=== PATIENT | female | born 1985 | race Caucasian/White ===

== ENCOUNTER 2021-05-24 16:35 | Emergency (ER) | payer OTHER ==
[~2021-05-24] VITALS: Ht 175.3 cm; Wt 138.6 kg
[~2021-05-24 16:35] MED LIST: ALBU8.5H; AUGM875T28 PO; BACL10TA2 PO; CYCL-707 PO; FERR325T18; FLUTISP NARES; GABA600T4; HYDR-3713 PO; LIDO5DIS41 TOP; NAPR-837 PO; NORC1TAB7 PO; OMEP-173; ONDA4TAB6 PO; PRED20TA PO; PREN29TA4 PO; SYMB16INH; TENS1TAB2 PO; TIZA10TA
[2021-05-24] MEDS ORDERED: IPRATROPIUM 0.5MG/ALBUTEROL 2.5MG INH SOL UD 3ML (DUONEB) NEB ONE (17:10)
[2021-05-24] MEDS ORDERED: methylPREDNISolone 125MG 2ML VIAL IV ONE (17:10)
[2021-05-24] MEDS ORDERED: MORPHINE 4 MG/ML 1ML VIAL/SYRINGE IV PRN (17:10)
[2021-05-24 17:52] LABS: BASO # 0.1 10^3/uL (0.0-0.2); BASO % 0.6 % (0.0-1.0); EOS # 0.2 10^3/uL (0.0-0.5); EOS % 1.8 % (0.0-3.0); HEMATOCRIT 40.5 % (36.0-47.0); HEMOGLOBIN 13.1 g/dl (12.0-15.5); LYMPH # 2.4 10^3/uL (1.5-5.0); LYMPH % 29.4 % (24.0-44.0); MEAN CORPUSCULAR HEMOGLOBIN 26.8 pg (27.0-33.0); MEAN CORPUSCULAR HGB CONC 32.3 g/dl (32.0-36.5); MEAN CORPUSCULAR VOLUME 82.8 fl (80.0-96.0); MONO # 0.7 10^3/uL (0.0-0.8); MONO % 8.7 % (2.0-8.0); NEUTROPHILS # 4.8 10^3/uL (1.5-8.5); NEUTROPHILS % 58.2 % (36.0-66.0); PLATELET COUNT, AUTOMATED 261 10^3/uL (150-450); RED BLOOD COUNT 4.89 10^6/uL (4.00-5.40); WHITE BLOOD COUNT 8.2 10^3/uL (4.0-10.0)
[2021-05-24 18:19] LABS: CK-MB VALUE MASS < 1.0 NG/ML (<3.6); CPK CREATINE PHOSPHOKINASE 46 U/L (26-192); MB/CK RELATIVE INDEX 2.17 (< OR =4)
[2021-05-24 18:21] LABS: HCG, SERUM QUALITATIVE NEGATIVE (NEGATIVE)
[2021-05-24 18:27] LABS: ALBUMIN 3.2 GM/DL (3.2-5.2); ALT/SGPT 33 U/L (12-78); BILIRUBIN,DIRECT < 0.1 MG/DL (0.0-0.2); BILIRUBIN,TOTAL 0.2 MG/DL (0.2-1.0); BLOOD UREA NITROGEN 9 MG/DL (7-18); CALCIUM LEVEL 8.6 MG/DL (8.5-10.1); CARBON DIOXIDE LEVEL 29 MEQ/L (21-32); CHLORIDE LEVEL 109 MEQ/L (98-107); CREATININE FOR GFR 0.73 MG/DL (0.55-1.30); FREE T4 0.88 NG/DL (0.76-1.46); GLOMERULAR FILTRATION RATE > 60.0 (>60); GLUCOSE, FASTING 82 MG/DL (70-100); LIPASE 144 U/L (73-393); MAGNESIUM LEVEL 1.9 MG/DL (1.8-2.4); POTASSIUM SERUM 4.4 MEQ/L (3.5-5.1); SODIUM LEVEL 140 MEQ/L (136-145)
[2021-05-24] MEDS ORDERED: ISOVUE-370 76% 100ML VIAL As Ordered ONE (18:57)
[2021-05-24] MEDS ORDERED: NORCO 5/325MG TABLET (BULK FOR ED) PO ONE (20:35)
[2021-05-24] MEDS ORDERED: PRED20TA PO ×2 (20:37→20:42)
[2021-05-24 20:45] VITALS: BP 139/65
== END 2021-05-24 21:20 | disposition home or self-care (01) ==
LOC: M ED 16:35
DX: M25.512 Pain in left shoulder (principal); R91.8 Other nonspecific abnormal finding of lung field; F17.200 Nicotine dependence, unspecified, uncomplicated; Z88.2 Allergy status to sulfonamides; Z88.6 Allergy status to analgesic agent
CPT/HCPCS: 71045; 71275; 73030; 80048; 80076; 82550; 82553; 83690; 83735; 84439; 84443; 84703; 85025; 93005; 93041; 94640; 94760; 96374; 96375; 99285; J2270; J2930; Q9967

== ENCOUNTER 2021-10-16 23:20 | Emergency (ER) | payer OTHER ==
[~2021-10-16] VITALS: Ht 175.3 cm; Wt 104.5 kg
[2021-10-16 23:45] VITALS: BP 137/86
== END 2021-10-16 23:52 | disposition left against medical advice (07) ==
LOC: M ED 23:20 → EDBD 23:20 → M ED 23:52
DX: Z53.21 Procedure and treatment not carried out due to patient leaving prior to being seen by health care provider (principal)

== ENCOUNTER 2022-03-29 05:57 | Emergency (ER) | payer OTHER | END 2022-03-29 06:13 | disposition left against medical advice (07) | LOC: M ED 05:57 → EDBD 05:57 → M ED 06:13 | DX: Z53.21 Procedure and treatment not carried out due to patient leaving prior to being seen by health care provider (principal) ==

== ENCOUNTER → 2022-05-15 | Outpatient (CLI) | payer OTHER ==
[2022-05-15 17:36] LABS: BASO # 0.1 10^3/uL (0.0-0.2); BASO % 0.8 % (0.0-1.0); EOS # 0.1 10^3/uL (0.0-0.5); EOS % 1.5 % (0.0-3.0); HEMATOCRIT 37.9 % (36.0-47.0); HEMOGLOBIN 12.1 g/dl (12.0-15.5); LYMPH # 2.4 10^3/uL (1.5-5.0); LYMPH % 29.6 % (24.0-44.0); MEAN CORPUSCULAR HEMOGLOBIN 25.7 pg (27.0-33.0); MEAN CORPUSCULAR HGB CONC 31.9 g/dl (32.0-36.5); MEAN CORPUSCULAR VOLUME 80.6 fl (80.0-96.0); MONO # 0.6 10^3/uL (0.0-0.8); MONO % 7.2 % (2.0-8.0); NEUTROPHILS # 4.8 10^3/uL (1.5-8.5); NEUTROPHILS % 59.6 % (36.0-66.0); PLATELET COUNT, AUTOMATED 322 10^3/uL (150-450)
[2022-05-15 17:38] LABS: IRON (FE) 27 UG/DL (50-170)
[2022-05-15 17:42] LABS: ALBUMIN 3.3 G/DL (3.2-5.2); ALKALINE PHOSPHATASE 56 U/L (46-116); ALT/SGPT 24 U/L (7.0-40); AST/SGOT 16 U/L (<34); BILIRUBIN,TOTAL 0.3 MG/DL (0.3-1.2); BLOOD UREA NITROGEN 15 MG/DL (9-23); CALCIUM LEVEL 8.6 MG/DL (8.5-10.1); CARBON DIOXIDE LEVEL 25 MMOL/L (20-31); CHLORIDE LEVEL 105 MMOL/L (98-107); CREATININE FOR GFR 0.73 MG/DL (0.55-1.30); GLOMERULAR FILTRATION RATE > 60.0 (>60); GLUCOSE, FASTING 84 MG/DL (60-100); POTASSIUM SERUM 4.3 MMOL/L (3.5-5.1); SODIUM LEVEL 137 MMOL/L (136-145); THYROID STIMULATING HORMONE 3.416 uIU/ML (0.55-4.78); TOTAL 25(OH) VITAMIN D 12.7 NG/ML (20.0-100.0); TOTAL PROTEIN 6.5 G/DL (5.7-8.2)
== END ==
LOC: M LAB 16:00
PROVIDERS: ATTEND Physician Assistant
DX: R53.83 Other fatigue (principal)

== ENCOUNTER 2023-04-30 14:40 | Observation (INO) | payer OTHER ==
[~2023-04-30] VITALS: Ht 175.3 cm; Wt 157.0 kg
[2023-04-30 17:06] LABS: BASO % 0.3 % (0.0-1.0); HEMATOCRIT 36.7 % (36.0-47.0); HEMOGLOBIN 11.7 g/dl (12.0-15.5); LYMPH # 1.1 10^3/uL (1.5-5.0); LYMPH % 7.4 % (24.0-44.0); MEAN CORPUSCULAR HEMOGLOBIN 25.5 pg (27.0-33.0); MEAN CORPUSCULAR HGB CONC 31.9 g/dl (32.0-36.5); MONO # 1.2 10^3/uL (0.0-0.8); MONO % 7.9 % (2.0-8.0); NEUTROPHILS # 12.1 10^3/uL (1.5-8.5); NEUTROPHILS % 80.7 % (36.0-66.0); PLATELET COUNT, AUTOMATED 296 10^3/uL (150-450); RED BLOOD COUNT 4.59 10^6/uL (4.00-5.40)
[2023-04-30] MEDS: VALPROATE SOD INJ 1,000 MG in D5W 50 ML IV ONE (17:32)
[2023-04-30] MEDS: LOSARTAN 50MG TABLET PO ONE (17:32)
[2023-04-30 17:35] LABS: INR 1.09; PARTIAL THROMBOPLASTIN TIME 22.1 SECONDS (24.8-34.2); PROTHROMBIN TIME 13.8 SECONDS (12.5-14.5)
[2023-04-30 17:37] LABS: LIPASE 22 U/L (12-53)
[2023-04-30 17:38] LABS: C REACTIVE PROTEIN QUANTITATIV < 0.40 MG/DL (<1.0)
[2023-04-30 17:39] LABS: ALBUMIN 2.9 G/DL (3.2-5.2); ALKALINE PHOSPHATASE 44 U/L (46-116); ALT/SGPT 36 U/L (7.0-40); AST/SGOT 12 U/L (<34); BILIRUBIN,DIRECT 0.1 MG/DL (<0.4); BILIRUBIN,TOTAL 0.3 MG/DL (0.3-1.2); BLOOD UREA NITROGEN 15 MG/DL (9-23); CALCIUM LEVEL 8.3 MG/DL (8.5-10.1); CARBON DIOXIDE LEVEL 29 MMOL/L (20-31); CHLORIDE LEVEL 106 MMOL/L (98-107); CK-MB VALUE MASS < 1.0 NG/ML (<3.6); CPK CREATINE PHOSPHOKINASE 42 U/L (34-145); CREATININE FOR GFR 0.65 MG/DL (0.55-1.30); GLOMERULAR FILTRATION RATE > 60.0 (>60); GLUCOSE, FASTING 94 MG/DL (60-100); MB/CK RELATIVE INDEX 2.38 (< OR =4); POTASSIUM SERUM 3.7 MMOL/L (3.5-5.1); SODIUM LEVEL 139 MMOL/L (136-145)
[2023-04-30] MEDS: MAG SULF 1GM/100ML (MAG RUN) 1 GM in IV 1 EA IV ONE (18:46)
[2023-04-30 19:13] LABS: APPEARANCE, CSF HAZY (CLEAR); COLOR, CSF COLORLESS (COLORLESS); CSF TUBE# CELL CNT TUBE 1
[2023-04-30 19:31] LABS: APPEARANCE, CSF HAZY (CLEAR); COLOR, CSF COLORLESS (COLORLESS); CSF TUBE# CELL CNT TUBE 4
[2023-04-30] MEDS: KETOROLAC 30 MG/ML 1ML VIAL IV ONE (19:38)
[2023-04-30 19:39] LABS: CSF TUBE# TP TUBE 2; TOTAL PROTEIN,CSF 41.4 MG/DL (15-45)
[2023-04-30 19:42] LABS: CSF TUBE# GLU TUBE 2
[2023-04-30] MEDS ORDERED: SYMB16INH INH (19:45)
[2023-04-30] MEDS ORDERED: FERR325T19 PO (19:45)
[2023-04-30] MEDS ORDERED: METH4PACK PO (19:45)
[2023-04-30] MEDS ORDERED: GABA-1171 PO (19:45)
[2023-04-30] MEDS ORDERED: CYAN-1 PO (19:45)
[2023-04-30] MEDS ORDERED: METO10TA2 PO (19:45)
[2023-04-30] MEDS ORDERED: HOME MED LIST COMPLETE! XX SCH (19:50)
[2023-04-30] MEDS: cefTRIAXone SOD 2 GM in D5W MINI-BAG PLUS 50 ML IV ONE (20:24)
[2023-04-30 21:01] LABS: RSV AMPLIFICATION NEGATIVE (NEGATIVE)
[2023-04-30] MEDS: NS IV ONE (21:10)
[2023-04-30] MEDS: ACYCLOVIR IV ONE (21:10)
[2023-04-30 23:08] LABS: ERYTHROCYTE SEDIMENTATION RATE 10 mm/hr (0-20)
[2023-05-01] VITALS (8 sets, daily range): BP systolic 125–178; BP diastolic 58–81; TEMP 97.9–98.9; O2SAT 94–96
[2023-05-01] MEDS ORDERED: MAALOX 30 ML SUSP *UDC PO PRN
[2023-05-01] MEDS ORDERED: FLUID PLACE HOLDER IV ONE
[2023-05-01] MEDS ORDERED: VANCOMYCIN HCL IV ONE
[2023-05-01] MEDS ORDERED: MOM 30ML SUSPENSION UDC PO PRN
[2023-05-01] MEDS ORDERED: ACETAMINOPHEN TAB 650MG DOSE (2X325MG) PO PRN
[2023-05-01] MEDS ORDERED: METOCLOPRAMIDE 10MG TAB PO PRN (00:15)
[2023-05-01] MEDS ORDERED: ALBUTEROL 90 MCG/ACT 8GM HFA INHALER INH PRN (00:15)
[2023-05-01] MEDS: VANCOMYCIN HCL 1,000 MG, VIAL MATE ADAPTER 1 EACH in D5W 250 ML IV ONE ×2 (01:13→02:23)
[2023-05-01] MEDS: NS 1,000 ML IV SCH (01:13)
[2023-05-01 01:28] LABS: INR 1.01; PARTIAL THROMBOPLASTIN TIME 22.6 SECONDS (24.8-34.2)
[2023-05-01] MEDS: NS IV SCH (04:05)
[2023-05-01] MEDS: ACYCLOVIR IV SCH (04:05)
[2023-05-01] MEDS ORDERED: NS IV SCH (05:00)
[2023-05-01] MEDS ORDERED: ACYCLOVIR IV SCH (05:00)
[2023-05-01 05:49] LABS: HEMATOCRIT 35.1 % (36.0-47.0); HEMOGLOBIN 11.1 g/dl (12.0-15.5); MEAN CORPUSCULAR HEMOGLOBIN 25.2 pg (27.0-33.0); MEAN CORPUSCULAR HGB CONC 31.6 g/dl (32.0-36.5); MEAN CORPUSCULAR VOLUME 79.8 fl (80.0-96.0); PLATELET COUNT, AUTOMATED 299 10^3/uL (150-450); WHITE BLOOD COUNT 14.5 10^3/uL (4.0-10.0)
[2023-05-01 06:23] LABS: PROCALCITONIN <0.04 ng/ml
[2023-05-01 06:35] LABS: ALBUMIN 2.7 G/DL (3.2-5.2); ALKALINE PHOSPHATASE 44 U/L (46-116); ALT/SGPT 73 U/L (7.0-40); AST/SGOT 31 U/L (<34); BILIRUBIN,TOTAL 0.2 MG/DL (0.3-1.2); BLOOD UREA NITROGEN 15 MG/DL (9-23); CALCIUM LEVEL 8.1 MG/DL (8.5-10.1); CARBON DIOXIDE LEVEL 29 MMOL/L (20-31); CHLORIDE LEVEL 107 MMOL/L (98-107); CREATININE FOR GFR 0.71 MG/DL (0.55-1.30); GLOMERULAR FILTRATION RATE > 60.0 (>60); GLUCOSE, FASTING 115 MG/DL (60-100); POTASSIUM SERUM 3.9 MMOL/L (3.5-5.1); SODIUM LEVEL 140 MMOL/L (136-145); TOTAL PROTEIN 5.5 G/DL (5.7-8.2)
[2023-05-01] MEDS: cefTRIAXone SOD 2 GM in D5W MINI-BAG PLUS 50 ML IV SCH (08:57)
[2023-05-01] MEDS: predniSONE 20 MG TAB PO SCH (08:58)
[2023-05-01] MEDS: GABAPENTIN 100 MG CAP PO SCH (08:58)
[2023-05-01] MEDS: DOCUSATE SODIUM 100MG CAPSULE PO SCH (08:58)
[2023-05-01] MEDS: ENOXAPARIN 40MG/0.4ML SYRINGE (J1650 PER 10MG) SC SCH (08:59)
[2023-05-01] MEDS: FERROUS SULFATE 325MG TAB PO SCH (08:59)
[2023-05-01] MEDS: EXCEDRIN MIGRAINE TABLET PO PRN (09:00)
[2023-05-01] MEDS: SENOKOT S TAB PO SCH (09:53)
[2023-05-01] MEDS: VANCOMYCIN HCL 750 MG, VIAL MATE ADAPTER 1 EACH in D5W 250 ML IV SCH ×2 (09:53→10:56)
[2023-05-01] MEDS: amLODIPine 5 MG TAB PO ONE (10:56)
[2023-05-01] MEDS ORDERED: TOPA50TA8 PO (11:02)
[2023-05-01] MEDS ORDERED: AMLO1TAB24 PO (11:03)
[2023-05-01] MEDS: SYMBICORT 160/4.5MCG INHALER 6GM INH SCH (11:43)
[2023-05-01] MEDS: hydrALAZINE 20MG/ML 1ML VIAL IV ONE (12:48)
[2023-05-02] MEDS ORDERED: amLODIPine 5 MG TAB PO SCH (09:00)
[2023-05-03] MEDS ORDERED: TOPI-21 PO (11:25)
== END 2023-05-01 13:33 | disposition home or self-care (01) ==
LOC: M ED 14:40 → EDBD 14:40 → M ED INP 23:31 → INTOOBSV 23:31 → M ICU 05-01 00:42
PROVIDERS: ADMIT Family Medicine; ATTEND Family Medicine
DX: G03.9 Meningitis, unspecified (principal); G43.909 Migraine, unspecified, not intractable, without status migrainosus; J45.901 Unspecified asthma with (acute) exacerbation; I10 Essential (primary) hypertension; K59.00 Constipation, unspecified; F17.218 Nicotine dependence, cigarettes, with other nicotine-induced disorders; Z79.899 Other long term (current) drug therapy; I16.0 Hypertensive urgency; D72.829 Elevated white blood cell count, unspecified; Z91.010 Allergy to peanuts; Z88.2 Allergy status to sulfonamides; Z88.8 Allergy status to other drugs, medicaments and biological substances
CPT/HCPCS: 70450; 80048; 80053; 80076; 82550; 82553; 82945; 83690; 83735; 84145; 84157; 84702; 85025; 85027; 85610; 85652; 85730; 86140; 87040; 87070; 87205; 87483; 87631; 88313; 89051; 93005; 94640; 96361; 96365; 96366; 96367; 96375; 99284; J0133; J0360; J0696; J1885; J3370; J3475; J7512

== ENCOUNTER 2023-07-17 00:48 | Emergency (ER) | payer OTHER ==
[~2023-07-17] VITALS: Ht 175.3 cm; Wt 155.0 kg
[~2023-07-17 00:48] MED LIST changes: +AMLO1TAB24 PO; +CYAN-1 PO; +FERR325T19 PO; +GABA-1171 PO; +METH4PACK PO; +METO10TA2 PO; +ONDA-282 PO; -ONDA4TAB6 PO; +SYMB16INH INH; +TOPA50TA8 PO; +TOPI-21 PO
[2023-07-17 01:25] LABS: BASO # 0.1 10^3/uL (0.0-0.2); BASO % 0.7 % (0.0-1.0); EOS # 0.1 10^3/uL (0.0-0.5); EOS % 1.5 % (0.0-3.0); HEMATOCRIT 39.4 % (36.0-47.0); HEMOGLOBIN 12.7 g/dl (12.0-15.5); LYMPH # 2.1 10^3/uL (1.5-5.0); LYMPH % 27.7 % (24.0-44.0); MEAN CORPUSCULAR HEMOGLOBIN 26.2 pg (27.0-33.0); MEAN CORPUSCULAR HGB CONC 32.2 g/dl (32.0-36.5); MEAN CORPUSCULAR VOLUME 81.4 fl (80.0-96.0); MONO # 0.6 10^3/uL (0.0-0.8); MONO % 8.1 % (2.0-8.0); NEUTROPHILS # 4.6 10^3/uL (1.5-8.5); NEUTROPHILS % 61.1 % (36.0-66.0); PLATELET COUNT, AUTOMATED 301 10^3/uL (150-450); RED BLOOD COUNT 4.84 10^6/uL (4.00-5.40); WHITE BLOOD COUNT 7.5 10^3/uL (4.0-10.0)
[2023-07-17 01:42] LABS: ALBUMIN 3.2 G/DL (3.2-5.2); ALKALINE PHOSPHATASE 59 U/L (46-116); ALT/SGPT 28 U/L (7.0-40); AST/SGOT 17 U/L (<34); BILIRUBIN,TOTAL 0.5 MG/DL (0.3-1.2); BLOOD UREA NITROGEN 8 MG/DL (9-23); CARBON DIOXIDE LEVEL 24 MMOL/L (20-31); CHLORIDE LEVEL 108 MMOL/L (98-107); CREATININE FOR GFR 0.75 MG/DL (0.55-1.30); GLOMERULAR FILTRATION RATE > 60.0 (>60); GLUCOSE, FASTING 109 MG/DL (60-100); POTASSIUM SERUM 3.9 MMOL/L (3.5-5.1); SODIUM LEVEL 138 MMOL/L (136-145); TOTAL PROTEIN 6.4 G/DL (5.7-8.2)
[2023-07-17] MEDS ORDERED: DOXY100C82 PO (09:04)
[2023-07-17 09:53] VITALS: BP 173/83; TEMP 97.1; O2SAT 98
== END 2023-07-17 09:55 | disposition home or self-care (01) ==
LOC: M ED 00:48
DX: L03.311 Cellulitis of abdominal wall (principal); W57.XXXA Bitten or stung by nonvenomous insect and other nonvenomous arthropods, initial encounter; Y92.9 Unspecified place or not applicable; Y93.9 Activity, unspecified; Y99.9 Unspecified external cause status; J45.909 Unspecified asthma, uncomplicated; Z79.899 Other long term (current) drug therapy; Z88.2 Allergy status to sulfonamides; Z88.8 Allergy status to other drugs, medicaments and biological substances; Z91.010 Allergy to peanuts

== ENCOUNTER → 2023-10-29 | Outpatient (REF) | payer OTHER ==
[~2023-10-29] MED LIST changes: +DOXY100C82 PO; +GABA-1490; -GABA600T4
== END ==
LOC: M LAB REF 16:33
PROVIDERS: ATTEND Physician Assistant
DX: B34.9 Viral infection, unspecified (principal)

== ENCOUNTER 2024-01-27 10:47 | Emergency (ER) | payer OTHER ==
[~2024-01-27] VITALS: Ht 172.7 cm; Wt 133.8 kg
[2024-01-27] MEDS ORDERED: ONDA-83 PO (11:01)
[2024-01-27] MEDS ORDERED: OMEP40CA5 PO (11:01)
[2024-01-27 11:20] LABS: HEMATOCRIT 43.9 % (36.0-47.0); HEMOGLOBIN 14.4 g/dl (12.0-15.5); MEAN CORPUSCULAR HEMOGLOBIN 24.6 pg (27.0-33.0); MEAN CORPUSCULAR HGB CONC 32.8 g/dl (32.0-36.5); PLATELET COUNT, AUTOMATED 320 10^3/uL (150-450); RED BLOOD COUNT 5.85 10^6/uL (4.00-5.40)
[2024-01-27] MEDS: METOPROLOL 5 MG/5 ML VIAL IV SCH ×2 (11:22→12:34)
[2024-01-27] MEDS: METOPROLOL TART 50 MG TAB PO ONE (11:35)
[2024-01-27 11:43] LABS: ETHYL ALCOHOL (ETHANOL) 0.004 % (0.000-0.010)
[2024-01-27 11:45] LABS: BLOOD UREA NITROGEN 8 MG/DL (9-23); CALCIUM LEVEL 9.6 MG/DL (8.5-10.1); CARBON DIOXIDE LEVEL 19 MMOL/L (20-31); CHLORIDE LEVEL 107 MMOL/L (98-107); CREATININE FOR GFR 0.75 MG/DL (0.55-1.30); GLOMERULAR FILTRATION RATE > 60.0 (>58); GLUCOSE, FASTING 91 MG/DL (60-100); MAGNESIUM LEVEL 1.7 MG/DL (1.8-2.4); POTASSIUM SERUM 3.6 MMOL/L (3.5-5.1); SODIUM LEVEL 139 MMOL/L (136-145)
[2024-01-27 11:47] LABS: FREE T4 0.98 NG/DL (0.89-1.76)
[2024-01-27 11:48] LABS: THYROID STIMULATING HORMONE 4.532 uIU/ML (0.55-4.78)
[2024-01-27] MEDS ORDERED: ISOVUE-370 76% 100ML VIAL As Ordered ONE (11:50)
[2024-01-27 12:34] VITALS: BP 116/72
[2024-01-27] MEDS: MAG SULF 1GM/100ML (MAG RUN) 1 GM in IV 1 EA IV ONE (12:57)
[2024-01-27] MEDS: FLECAINIDE 50MG TABLET PO ONE (12:57)
[2024-01-27] MEDS ORDERED: GABA-1490 PO (13:51)
[2024-01-27] MEDS ORDERED: PEDI18TA PO (13:52)
[2024-01-27] MEDS ORDERED: D 101000 PO (13:52)
[2024-01-27] MEDS ORDERED: HOME MED LIST COMPLETE! XX SCH (13:55)
[2024-01-27] MEDS ORDERED: SLOWTAB2 PO (16:11)
[2024-01-27] MEDS ORDERED: FLEC50HA PO (16:11)
[2024-01-27 16:31] VITALS: BP 98/65; TEMP 96.9; O2SAT 98
== END 2024-01-27 16:52 | disposition home or self-care (01) ==
LOC: EDBD 10:47 → M ED 10:47
DX: I48.0 Paroxysmal atrial fibrillation (principal); E83.42 Hypomagnesemia; I10 Essential (primary) hypertension; J45.909 Unspecified asthma, uncomplicated; G43.909 Migraine, unspecified, not intractable, without status migrainosus; F41.9 Anxiety disorder, unspecified; G47.33 Obstructive sleep apnea (adult) (pediatric); Z98.84 Bariatric surgery status; E66.9 Obesity, unspecified; Z79.899 Other long term (current) drug therapy; Z88.2 Allergy status to sulfonamides; Z88.8 Allergy status to other drugs, medicaments and biological substances; Z91.018 Allergy to other foods
CPT/HCPCS: 71045; 71275; 80048; 82077; 83735; 84439; 84443; 85027; 93005; 96365; 96366; 96375; 96376; 99285; J3475; Q9967

== ENCOUNTER → 2024-04-25 | Outpatient (CLI) | payer OTHER ==
[~2024-04-25] MED LIST changes: +D 101000 PO; +DOXY-442 PO; -DOXY100C82 PO; +FLEC50HA PO; +GABA-1490 PO; +OMEP40CA5 PO; +ONDA-83 PO; +PEDI18TA PO; +SLOWTAB2 PO
[2024-04-25 17:07] LABS: HEMATOCRIT 41.6 % (36.0-47.0); HEMOGLOBIN 13.3 g/dl (12.0-15.5); MEAN CORPUSCULAR HEMOGLOBIN 24.7 pg (27.0-33.0); MEAN CORPUSCULAR VOLUME 77.3 fl (80.0-96.0); PLATELET COUNT, AUTOMATED 314 10^3/uL (150-450); RED BLOOD COUNT 5.38 10^6/uL (4.00-5.40); WHITE BLOOD COUNT 8.5 10^3/uL (4.0-10.0)
[2024-04-25 17:28] LABS: TOTAL IRON BINDING CAPACITY 380 UG/DL (250-425)
[2024-04-25 17:29] LABS: HEMOGLOBIN A1c 5.3 % (4.0-6.0)
[2024-04-25 17:30] LABS: ALBUMIN 3.5 G/DL (3.2-5.2); ALKALINE PHOSPHATASE 63 U/L (35-104); ALT/SGPT 46 U/L (7.0-40); AST/SGOT 22 U/L (<34); BILIRUBIN,TOTAL 0.6 MG/DL (0.3-1.2); BLOOD UREA NITROGEN 9 MG/DL (9-23); CALCIUM LEVEL 8.9 MG/DL (8.5-10.1); CARBON DIOXIDE LEVEL 25 MMOL/L (20-31); CHLORIDE LEVEL 107 MMOL/L (98-107); CREATININE FOR GFR 0.73 MG/DL (0.55-1.30); FERRITIN 6.8 NG/ML (7.3-270.7); FOLATE 5.63 NG/ML (>5.4); GLOMERULAR FILTRATION RATE > 60.0 (>58); GLUCOSE, FASTING 73 MG/DL (60-100); IRON (FE) 25 UG/DL (50-170); MAGNESIUM LEVEL 1.8 MG/DL (1.8-2.4); PERCENT SATURATION 6.6 % (13.2-45.0); PHOSPHORUS LEVEL 2.7 MG/DL (2.5-4.9); POTASSIUM SERUM 3.8 MMOL/L (3.5-5.1); SODIUM LEVEL 142 MMOL/L (136-145); TOTAL 25(OH) VITAMIN D 34.9 NG/ML (20.0-100.0); TOTAL PROTEIN 6.6 G/DL (5.7-8.2); VITAMIN B12 LEVEL 342 PG/ML (211-911)
== END ==
LOC: M LAB 12:56
PROVIDERS: ATTEND Physician Assistant Surgical
DX: K91.2 Postsurgical malabsorption, not elsewhere classified (principal); Z98.84 Bariatric surgery status; Z86.39 Personal history of other endocrine, nutritional and metabolic disease

== ENCOUNTER → 2024-08-22 | Outpatient (CLI) | payer OTHER ==
[~2024-08-22] MED LIST changes: +LIDO1ADH93 TOP; -LIDO5DIS41 TOP
== END ==
LOC: M SOG 07:09
PROVIDERS: ATTEND Physician Assistant
DX: S62.662A Nondisplaced fracture of distal phalanx of right middle finger, initial encounter for closed fracture (principal); M19.042 Primary osteoarthritis, left hand

== ENCOUNTER 2024-09-14 05:03 | Emergency (ER) | payer OTHER ==
[~2024-09-14] VITALS: Ht 172.7 cm; Wt 99.1 kg
[~2024-09-14 05:03] MED LIST changes: +SLOW1TAB3 PO; -SLOWTAB2 PO
[2024-09-14 05:38] LABS: BASO # 0.1 10^3/uL (0.0-0.2); BASO % 0.6 % (0.0-1.0); EOS # 0.1 10^3/uL (0.0-0.5); EOS % 1.3 % (0.0-3.0); LYMPH # 2.8 10^3/uL (1.5-5.0); LYMPH % 32.4 % (24.0-44.0); MONO # 0.6 10^3/uL (0.0-0.8); MONO % 7.4 % (2.0-8.0); NEUTROPHILS # 5.0 10^3/uL (1.5-8.5); NEUTROPHILS % 57.5 % (36.0-66.0); PLATELET COUNT, AUTOMATED 311 10^3/uL (150-450)
[2024-09-14 06:01] LABS: CALCIUM LEVEL 9.0 MG/DL (8.5-10.1); CARBON DIOXIDE LEVEL 26 MMOL/L (20-31); CHLORIDE LEVEL 105 MMOL/L (98-107); CK-MB VALUE MASS < 1.0 NG/ML (<3.6); CPK CREATINE PHOSPHOKINASE 22 U/L (34-145); CREATININE FOR GFR 0.85 MG/DL (0.55-1.30); GLOMERULAR FILTRATION RATE 88.2 (>58); POTASSIUM SERUM 4.1 MMOL/L (3.5-5.1); SODIUM LEVEL 141 MMOL/L (136-145)
[2024-09-14 06:54] LABS: CK-MB VALUE MASS < 1.0 NG/ML (<3.6)
[2024-09-14 06:56] LABS: CPK CREATINE PHOSPHOKINASE 26 U/L (34-145)
[2024-09-14 08:00] VITALS: TEMP 97
[2024-09-14] MEDS ORDERED: ISOVUE-300 61% 100 ML VIAL As Ordered ONE (08:37)
[2024-09-14] MEDS ORDERED: ISOVUE-370 76% 100 ML VIAL As Ordered ONE (08:39)
[2024-09-14 09:30] VITALS: BP 145/74
[2024-09-14 10:00] VITALS: O2SAT 99
== END 2024-09-14 11:15 | disposition home or self-care (01) ==
LOC: M ED 05:03
DX: R07.89 Other chest pain (principal); R91.8 Other nonspecific abnormal finding of lung field; K76.0 Fatty (change of) liver, not elsewhere classified; I48.91 Unspecified atrial fibrillation; I10 Essential (primary) hypertension; E66.9 Obesity, unspecified; J45.909 Unspecified asthma, uncomplicated; F41.9 Anxiety disorder, unspecified; Z98.84 Bariatric surgery status; G43.909 Migraine, unspecified, not intractable, without status migrainosus; F17.290 Nicotine dependence, other tobacco product, uncomplicated; F12.10 Cannabis abuse, uncomplicated; Z79.899 Other long term (current) drug therapy; Z88.2 Allergy status to sulfonamides; Z88.8 Allergy status to other drugs, medicaments and biological substances; Z91.010 Allergy to peanuts
CPT/HCPCS: 71045; 71275; 74177; 80048; 82550; 82553; 83880; 84484; 85025; 85730; 93005; 93041; 94760; 99285; Q9967

== ENCOUNTER → 2024-09-25 | Outpatient (CLI) | payer OTHER | LOC: M SOG 07:03 | PROVIDERS: ATTEND Physician Assistant | DX: S62.662A Nondisplaced fracture of distal phalanx of right middle finger, initial encounter for closed fracture (principal) ==

== ENCOUNTER → 2024-10-25 | Outpatient (CLI) | payer OTHER | LOC: M SOG 06:55 | PROVIDERS: ATTEND Physician Assistant | DX: S62.662A Nondisplaced fracture of distal phalanx of right middle finger, initial encounter for closed fracture (principal); Z53.9 Procedure and treatment not carried out, unspecified reason ==

== ENCOUNTER 2024-12-01 15:03 | Emergency (ER) | payer OTHER ==
[~2024-12-01] VITALS: Ht 175.3 cm; Wt 92.1 kg
[2024-12-01 16:44] LABS: URINE PREG TEST NEGATIVE (NEGATIVE)
[2024-12-01 16:51] LABS: KETONE, URINE AUTO RFX TRACE mg/dL (NEGATIVE); LEUKOCYTE ESTERASE UR AUTO RFX NEGATIVE (NEGATIVE); MUCUS, URINE RFX MODERATE (NEGATIVE); NITRITE, URINE AUTO RFX NEGATIVE (NEGATIVE); RBC, URINE AUTO RFX 3 /HPF (0-3); SQUAM EPITHELIAL CELL UR AURFX 6 /HPF (0-6); WBC, URINE AUTO RFX 2 /HPF (0-3)
[2024-12-01] MEDS ORDERED: NYST-38 PO (18:12)
[2024-12-01 18:20] VITALS: BP 140/78; TEMP 97; O2SAT 97
== END 2024-12-01 18:22 | disposition home or self-care (01) ==
LOC: M ED 15:03
DX: S00.83XA Contusion of other part of head, initial encounter (principal); B37.0 Candidal stomatitis; Y04.0XXA Assault by unarmed brawl or fight, initial encounter; Y92.009 Unspecified place in unspecified non-institutional (private) residence as the place of occurrence of the external cause; Y93.9 Activity, unspecified; Y99.9 Unspecified external cause status; Z79.899 Other long term (current) drug therapy; Z88.2 Allergy status to sulfonamides; Z88.8 Allergy status to other drugs, medicaments and biological substances; Z91.018 Allergy to other foods

== ENCOUNTER → 2024-12-05 | Outpatient (CLI) | payer OTHER ==
[~2024-12-05] MED LIST changes: +NYST-38 PO
== END ==
LOC: M SOG 07:22
PROVIDERS: ATTEND Physician Assistant
DX: S62.662A Nondisplaced fracture of distal phalanx of right middle finger, initial encounter for closed fracture (principal)

== ENCOUNTER 2025-01-01 12:12 | Emergency (ER) | payer OTHER ==
[~2025-01-01] VITALS: Ht 172.7 cm; Wt 86.4 kg
[2025-01-01 13:57] VITALS: TEMP 97.8
[2025-01-01 15:00] VITALS: BP 123/80; O2SAT 97
[2025-01-01] MEDS ORDERED: MORPHINE 4 MG/ML 1 ML VIAL IV ONE (15:55)
== END 2025-01-01 16:20 | disposition left against medical advice (07) ==
LOC: M ED 12:12
DX: M54.50 Low back pain, unspecified (principal); I10 Essential (primary) hypertension; G47.33 Obstructive sleep apnea (adult) (pediatric); J45.909 Unspecified asthma, uncomplicated; J44.9 Chronic obstructive pulmonary disease, unspecified; Z86.79 Personal history of other diseases of the circulatory system; F31.9 Bipolar disorder, unspecified; Z88.2 Allergy status to sulfonamides; Z88.6 Allergy status to analgesic agent; Z91.010 Allergy to peanuts; Z79.899 Other long term (current) drug therapy; Z53.9 Procedure and treatment not carried out, unspecified reason

== ENCOUNTER → 2025-01-02 | Outpatient (CLI) | payer OTHER | LOC: M SOG 07:35 | PROVIDERS: ATTEND Physician Assistant | DX: S62.662A Nondisplaced fracture of distal phalanx of right middle finger, initial encounter for closed fracture (principal); Z53.9 Procedure and treatment not carried out, unspecified reason ==